=== PATIENT | female | born 1950 | race Caucasian/White ===

== ENCOUNTER 2020-11-07 07:26 | Outpatient (CLI) | payer MEDICARE, SELFPAY ==
--- NOTE | ~2020-11-07 | XR_ITS ---
EXAMINATION: XR hand RT min 3V, XR wrist RT min 3V DATE: 11/07/2020 08:02 INDICATION: Right thumb instability with pain and swelling post fall TECHNIQUE: 1. Posteroanterior, ulnar deviation, oblique, and lateral views of the right wrist were obtained. 2. Dorsal palmar, oblique and lateral views of the right hand were obtained. COMPARISON: None. FINDINGS: Prominent radial angulation along moderate radial subluxation at the first metacarpophalangeal joint suspicious for tear of the ulnar collateral ligament. There is moderate osteoarthritis at the first m etacarpophalangeal joint suggesting this could be chronic. There is widening of the scapholunate inte rval along with dorsal intercalated segment instability (DISI) consistent with scapholunate ligament tear. This is likely chronic given the moderate osteoarthritis at the radioscaphoid articulation of t he wrist and the lunocapitate articulation of the midcarpal joint, both findings of scapholunate adva nced collapse (SLAC) wrist. No acute fracture. Additional mild polyarticular osteoarthritis at the di stal radioulnar, triscaphe, first carpometacarpal, the majority of the interphalangeal joints and a f ew additional metacarpophalangeal joints. There is soft tissue swelling about the first metacarpophal angeal joint. IMPRESSION: 1. Radial angulation and radial subluxation at the first metacarpophalangeal joint suspicious for age indeterminate tear of the ulnar collateral ligament. 2. 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 Reviewed, dictated and finalized at location A. IMPRESSION: 1. Radial angulation and radial subluxation at the first metacarpophalangeal juan int suspicious for age indeterminate tear of the ulnar collateral ligament. 2. 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
--- NOTE | ~2020-11-07 | XR_ITS ---
EXAMINATION: XR wrist LT min 3V DATE: 11/07/2020 08:02 INDICATION: Left wrist pain post fall 2 weeks prior. TECHNIQUE: Posteroanterior, ulnar deviation, oblique, and lateral views of the left wrist were obtain ed. COMPARISON: none FINDINGS: Linear lucency with subtle increased sclerosis along the indistinct margins consistent with early chas nges of healing at a nondisplaced transverse fracture of the distal left radius. The fracture is mild ly comminuted with dorsal impaction and mild buckling along the dorsal cortex. On the oblique project ion there is an additional thin linear lucency suspicious for intra-articular extension of a nondispl aced fracture plane. There is neutral tilt of the distal articular surface. No other fractures identi fied. There is likely chronic tear of the scapholunate ligament with widening of the scapholunate int erval, dorsal intercalated segment instability (DISI) and secondary scapholunate advanced collapse (S LAC) wrist characterized by severe osteoarthritis at the radioscaphoid articulation. Additional mild polyarticular osteoarthritis at multiple joints at the left wrist and visualized hand. Prominent soft tissue swelling about the wrist and carpus. IMPRESSION: 1. Mild dorsal impaction of a likely subacute healing nondisplaced potentially intra-articular fractu re at the distal left radius. 2. 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 Reviewed, dictated and finalized at location A. IMPRESSION: 1. Mild dorsal impaction of a likely subacute healing nondisplaced potentially intra-articular fracture at the distal left radius. 2. Chronic scapholunate ligament tear with secondary dorsal intercalated segmen t instability (DISI) and secondary scapholunate advanced collapse (SLAC) wrist.
== END 2020-11-07 07:27 | disposition home or self-care (01) ==
PROVIDERS: Visit Provider Plastic Surgery
DX: S62.511A Displaced fracture of proximal phalanx of right thumb, initial encounter for closed fracture (principal); S62.002A Unspecified fracture of navicular [scaphoid] bone of left wrist, initial encounter for closed fracture; X58.XXXA Exposure to other specified factors, initial encounter
CPT/HCPCS: 73110; 73130

== ENCOUNTER 2020-12-19 00:53 | Day surgery (SDC) | payer MEDICARE, SELFPAY ==
[2020-12-17 09:25] VITALS: BMI 24.7
[2020-12-19] VITALS (8 sets, daily range): BP systolic 115–160; BP diastolic 51–80; PULSE 70–85; RESP 10–17; TEMP 36.2–36.8; O2SAT 93–98; BMI 24.7
--- NOTE | ~2020-12-19 | XR_ITS ---
EXAMINATION: XR surgery orthopedic EXAM DATE: 12/19/2020 09:09 INDICATION: Right hand 1st finger tendon repair. TECHNIQUE: Several portable intraoperative images obtained. Correlation is made to right hand examin ation was 11/07/2020. FINDINGS: Several images demonstrating subluxation of the right 1st proximal phalanx, and also vidal l position of this phalanx. A surgical pin was inserted in the proximal phalangeal base. Correlate wi th procedure note. IMPRESSION: Fluoroscopy used during right 1st digit tendon repair. Reviewed, dictated and finalized at location B.
[2020-12-19] MEDS: ACETAMINOPHEN 500 MG TABLET 1000 MG PO (06:21)
[2020-12-19] MEDS: LACTATED RINGERS 1,000 ML 30 ML IV CONT ×2 (06:30→09:35)
--- NOTE | 2020-12-19 07:08 | WPDANESEPPF ---
Anes - Initial Pre Proc Eval Procedure: Operation Date: 12/19/20 07:30 Proposed Procedures p Repair Right First Ulnar Collateral Ligament At The Metacarpophalangeal Joint With Arthrex Internal Brace - Brent Mares MD Date/Time: 12/19/20 07:08 Surgeon: Brent Mares MD Pre Op Diagnosis: rupture ulnar collateral ligament rt 1st mp joint Patient Data Age: 70 Gender: F Height: 1.71 m Weight: 72.65 kg Last Vital Signs Temp 98.3 F 12/19/20 06:10 Pulse 70 12/19/20 06:10 Resp 16 12/19/20 06:10 BP 160/63 H 12/19/20 06:10 Pulse Ox 97 12/19/20 06:10 Allergies Allergy/AdvReac Type Severity Reaction Status Date / Time Penicillins Allergy Unknown Unknown - Verified 12/19/20 06:06 A CHILD Contrast Media AdvReac Unknown FACIAL Uncoded 12/17/20 09:24 SWELLING Home Medications Medication Instructions Recorded Confirmed Type pizhkset-fedpbal-eqxp-lutein 1 tablet QAM 12/17/20 12/19/20 History [Centrum Silver Ultra Women's] Patient hx anesthesia problems: none Family hx anesthesia problems: none Results Review: All pre-operative results and documents have been reviewed as part of the pre-operative evaluation. FOR[facility]LY [facility], [facility] Past Medical History Medical History (Updated 12/19/20 @ 07:08 by Benjamin Coley MD) Arthritis H/O bronchitis Social History Social History Smoking status: Former smoker Tobacco type: cigarettes Second hand tobacco smoke exposure: No Additional smoking assessment comments: PT STATES SMOKED 1PK/WEEK/ OFF & ON 50YRS- QUIT 2016 FOR GOOD Alcohol intake: current Drinks per week: 2 Substance use: never Substance use type: does not use Living arrangements: alone Spiritual care concerns: No Anes - Eval Final PreProcedure Day of Procedure 12/19/20 07:08 Patient weight: overweight Heart: regular rate and rhythm Lungs: clear to auscultation Airway: Mallampati scale class II Neurological: alert and oriented Last oral intake: >/= 8 hours ASA classification: II Emergent: no Anesthetic plan: proceed Anesthesia type and monitoring: general LMA and standard monitoring Results Review: All pre-operative results and documents have been reviewed as part of the pre-operative evaluation. Informed Consent: The patient's anesthetic plan and its attendant risks and benefits were discussed with the patient/family/POA. Questions were solicited and answers provided to the satisfaction of the patient/family/POA.
--- NOTE | 2020-12-19 07:21 | WPDHPUPDATE1 ---
History and Physical Update Update Date/Time: 12/19/20 07:21 History and Physical has been reviewed, including an updated exam of the patient. There are NO changes in the patient's condition. Risks, benefits, and alternatives have been discussed and questions answered. Patient agrees to proceed with procedure.
[2020-12-19] MEDS: ceFAZolin 2 GM/D5W 50 ML 2 GM/50 ML BAG IVPB (07:37)
[2020-12-19] MEDS: LIDO 1%/EPINEPHRINE 1:100,000 50 ML VIAL INFILTRATE (08:03)
[2020-12-19] MEDS: BUPIVACAINE HCL 0.5% PF 30 ML VIAL INFILTRATE (09:14)
--- NOTE | 2020-12-19 09:59 | P.OP_ITS ---
Procedure Note - Detailed Date of Procedure 12/19/20 Pre-op Diagnosis rupture ulnar collateral ligament rt 1st mp joint Post-op Diagnosis same Procedure Performed Repair of right 1st metacarpophalangeal joint ulnar collateral ligament with Arthrex internal brace Surgeon Brent Mares MD [employer] Special Agent [place] Anesthesia general Indications 8-week-old rupture with Stener lesion Description of Procedure The site was marked on the patient's hand in the holding area. She was taken to the operating room and placed supine on the operating table. Time-out was held and confirmed. She was given general endotracheal anesthesia. The right upper extremity was prepped and draped in usual fashion. The site was marked for the incision and locally infiltrated with 1% lidocaine with epinephrine. The extremity was exsanguinated and the tourniquet inflated to 250 mmHg. The lazy-S incision was made as marked and the skin flaps elevated both directions. Some organized clot and scarring was identified. We were able to determine the course of the EPL and made our incision in the abductor pollicis aponeurosis to expose the metacarpophalangeal joint. Careful dissection revealed the large Stener lesion. There appeared to be adequate ligament material distally to which we could repair. The joint was examined and fairly significant osteoarthritis of that joint was noted. The fenestration for the Arthrex anchor was drilled and over-drilled after confirming its position by C-arm images. The combination suture tape and FiberWire were inserted at that site retained by the interference lock. The needle was passed onto the FiberWire and this was passed through the distal stump of the ligament and into the proximal stump. We were able to ulnarly abduct the thumb and tighten that repair over the proximal ligament stump. The 2nd fenestration was made just proximal to the origin of the ulnar collateral ligament. This was overdrilled and the suture tape was pulled over the ulnar collateral ligament and fixed to that site with the 2nd anchor lock. Stability was obtained. Easy passive range of motion of about 30? was confirmed. Ulnar deviation was quite limited. The ligament was sutured to the volar plate in a single site with 4-0 Vicryl suture. The aponeurosis was repaired with 4-0 Vicryl. The skin was closed with running 5 0 nylon. A branch of the cutaneous nerve traversing our area had been visualized and retained out of the way throughout the procedure and was visualized upon closure. A bulky bandage with thumb spica splint was applied. The tourniquet was released at the time of the wound closure. The site was locally infiltrated with 0.5% Marcaine 8 milliliter Implants Arthrex internal brace Estimated Blood Loss 5 Drains No Packing No Pathology none sent Complications No immediate complications Condition stable Disposition PACU
[2020-12-19] MEDS: ONDANSETRON INJ 4 MG/2 ML VIAL IV PUSH (10:08)
[2020-12-19] MEDS: diphenhydrAMINE HCl INJ 50 MG/ML VIAL 12.5 MG IV PUSH (10:22)
== END 2020-12-19 11:20 | disposition home or self-care (01) ==
PROVIDERS: Visit Provider Plastic Surgery
PROC: (CPT 26540; principal; 2020-12-19 07:30)
DX: S63.311A Traumatic rupture of collateral ligament of right wrist, initial encounter (principal); Z87.891 Personal history of nicotine dependence; Z91.041 Radiographic dye allergy status; Z88.0 Allergy status to penicillin; X58.XXXA Exposure to other specified factors, initial encounter; Y93.89 Activity, other specified; Y92.9 Unspecified place or not applicable; Y99.9 Unspecified external cause status
CPT/HCPCS: 26540; A9270; C1713; J0690; J1100; J1200; J2250; J2405; J2704; J3010; J7120

== ENCOUNTER 2021-08-23 20:32 | Emergency (ER) | payer MEDICARE, SELFPAY ==
--- NOTE | ~2021-08-23 | XR_ITS ---
EXAMINATION: XR chest 1V portable Exam Date/Time: 08/23/2021 21:00 CDT HISTORY: cough, HX bronchitis, cp after coughing Comparison: CT abdomen and pelvis 03/30/2018. RESULT: Lines, tubes, and devices: None. Lungs and pleura: Subtle peripheral reticulonodular opacities, overlying mild senescent and chronic interstitial change. Cardiomediastinal silhouette: Stable cardiomediastinal silhouette. Other: No acute osseous or upper abdominal finding. IMPRESSION: Pulmonary opacities may represent bronchiolitis, as can be seen with atypical infection, asthma, aspi ration, and small airways disease. Mild chronic senescent and interstitial change. Reviewed, dictated and finalized at location K. IMPRESSION: Pulmonary opacities may represent bronchiolitis, as can be seen with atypical i nfection, asthma, aspiration, and small airways disease. Mild chronic senescent and interstitial change.
[2021-08-23 20:34] VITALS: BP 109/67; PULSE 115; RESP 20; TEMP 36.3; O2SAT 93
--- NOTE | 2021-08-23 20:34 | ECG_ITS ---
Measurements Intervals [place] Rate: 105 P: 63 NV: 128 QRS: 11 QRSD: 89 T: 62 QT: 313 QTc: 414 Interpretive Statements SINUS TACHYCARDIA BORDERLINE ECG Electronically Signed On 08-24-2021 6:19:46 CDT by Zana Rubio D.O.
--- NOTE | 2021-08-23 20:55 | ED.GENADULT ---
HPI - General Adult General Chief complaint: Upper Respiratory Infection Stated complaint: Cough, bronchitis Time Seen by Provider: 08/23/21 20:38 History of Present Illness HPI narrative: 71-year-old female presenting to the emergency department for evaluation of worsening cough and shortness of breath over the last 3 days. Patient reports she is vaccinated against COVID but has not yet had COVID. Patient denies any COVID exposure. Patient states over the last few days she has had increased cough. Patient describes the cough as nonproductive. Patient also does describe some associated fatigue. Patient does have a remote smoking history but denies any diagnosis of COPD and does not use oxygen at home. Related Data Home Medications Medication Instructions Recorded Confirmed qdculzuf-cpxwutw-bjwv-lutein tablet 1 tablet QAM 12/17/20 12/19/20 meloxicam 15 mg tablet tablet 08/23/21 Allergies Allergy/AdvReac Type Severity Reaction Status Date / Time Penicillins Allergy Unknown Unknown - Verified 08/23/21 21:18 A CHILD Contrast Media AdvReac Unknown FACIAL Uncoded 08/23/21 21:18 SWELLING Review of Systems Review of Systems: CONSTITUTIONAL: Denies fever, chills, or sweats. EYES: Denies visual changes, redness, or discharge. ENT: Denies rhinorrhea, congestion, sore throat, or otalgia. CARDIOVASCULAR: Denies chest pain, palpitations, or edema. RESPIRATORY: See HPI GASTROINTESTINAL: Denies abdominal pain, nausea, vomiting, or diarrhea. GENITOURINARY: Denies dysuria or hematuria. SKIN: Denies rash or itching. MUSCULOSKELETAL: Denies back pain, joint pain, or myalgia. NEUROLOGIC: Denies headache, numbness, or weakness. [facility] Past Medical History Medical History (Updated 08/23/21 @ 23:08 by Traun Callahan MD) Arthritis H/O bronchitis Social History Social History Smoking status: Former smoker Tobacco type: cigarettes Second hand tobacco smoke exposure: No Additional smoking assessment comments: PT STATES SMOKED 1PK/WEEK/ OFF & ON 50YRS- QUIT 2016 FOR GOOD Alcohol intake: current Drinks per week: 2 Substance use: never Substance use type: does not use Spiritual care concerns: No Exam Narrative: APPEARANCE: Well appearing, no pain, no distress, well-nourished. HEAD: normocephalic, atraumatic. EYES: PERRLA/EOMI, conjunctivae clear. NOSE: Normal no drainage THROAT: Pharynx clear, no exudate. NECK: Supple. No adenopathy, no masses. RESPIRATORY: Airway patent, respirations nonlabored. Increased work of breathing, cough, some rhonchi CARDIOVASCULAR: Regular rate and rhythm without murmurs rubs or gallops. ABDOMINAL: Soft, nontender, nondistended, normal bowel sounds MUSCULOSKELETAL: Moves all extremities. Strength/ROM intact, No edema, No calf tenderness. NEURO: Alert. Cranial nerves II through XII intact. Grossly intact SKIN: Warm, dry. Normal Color Course Course Emergency Course: Patient did feel improved with treatment. Patient's pulse ox was stable during ambulation. Patient did have an elevated D-dimer but was within normal limits when age-adjusted. Patient was treated with a Z-Johan and a breathing treatment. Patient reports she felt improved. Patient was discharged home with the completion of the Z-Johan and an albuterol inhaler for home. All questions and concerns were addressed. Patient was stable at time of discharge from the emergency department. Vital Signs Vital signs: Vital Signs Temperature 97.4 F L 08/23/21 20:34 Pulse Rate 115 H 08/23/21 20:34 Respiratory Rate 20 08/23/21 20:34 Blood Pressure 109/67 08/23/21 20:34 Pulse Oximetry 93 08/23/21 20:34 Oxygen Delivery Room Air 08/23/21 20:34 Temperature 97.4 F L 08/23/21 20:34 Pulse Rate 105 H 08/24/21 01:18 Respiratory Rate 20 08/24/21 01:18 Blood Pressure 101/82 08/24/21 01:18 Pulse Oximetry 92 08/24/21 01:18 Oxygen Delivery Room Air 08/24/21 00:00 [facility]
[2021-08-23 21:06] LABS: Basophils Absolute Auto 0.1 K/mm3 (0.0-0.1); Basophils Percent Auto 0.6 % (0.2-1.2); Eosinophils Percent Auto 5.8 % (0-4.4); Hematocrit 47.7 % (37.0-47.0); Hemoglobin 15.6 g/dL (12.0-15.0); Immature Granulocyte Absolute 0.06 K/mm3 (0.00-0.031); Immature Granulocyte Percent A 0.4 % (0-0.5); Lymphocytes Absolute Auto 3.04 K/mm3 (0.9-3.2); Mean Corpuscular HGB Conc 32.7 g/dl (32-36); Mean Corpuscular Hemoglobin 30.6 pg (26-34); Mean Corpuscular Volume 93.5 fl (80-100); Mean Platelet Volume 9.9 fl (7.4-10.4); Monocytes Absolute Auto 0.6 K/mm3 (0.1-0.6); Monocytes Percent Auto 3.7 % (2.6-8.5); Neutrophils Absolute Auto 12.1 K/mm3 (1.3-6.7); Neutrophils Percent Auto 71.5 % (45.5-73.1); Platelet Count Result 221 k/mm3 (150-375); Red Cell Distribution Width 13.6 % (11.5-14.5); White Blood Count 16.9 K/mm3 (4.5-10.0)
[2021-08-23 21:16] LABS: Alanine Aminotransferase 17 U/L (6-35); Albumin Level 4.5 g/dL (3.5-5.1); Alkaline Phosphatase 68 U/L (38-126); Anion Gap 7 mmol/L (8-16); Aspartate Amino Transferase 24 U/L (14-36); Bilirubin,Total 0.5 mg/dL (0.2-1.3); Blood Urea Nitrogen 23 mg/dL (7-17); Calcium 8.9 mg/dL (8.4-10.2); Carbon Dioxide 25 mmol/L (22-30); Chloride 108 mmol/L (98-107); Estimated Glomerular Filt Rate > 60; Glucose 116 mg/dL (65-110); Potassium 3.9 mmol/L (3.4-5.0); Sodium 140 mmol/L (137-145)
[2021-08-23 21:17] VITALS: O2SAT 92
[2021-08-23] MEDS: ALBUTEROL SULFATE NEB 2.5 MG/3 ML INH 5 MG INHALATION (21:20)
[2021-08-23 21:22] VITALS: PULSE 111; RESP 17
[2021-08-23 21:35] VITALS: PULSE 111; RESP 17
[2021-08-23 21:43] LABS: SARS-CoV-2 RNA PCR Negative
[2021-08-23 23:05] VITALS: BP 123/62; PULSE 109; RESP 19; O2SAT 91
[2021-08-23 23:25] LABS: D Dimer 0.49 ug/mL (<0.48)
[2021-08-24] VITALS: O2SAT 92
[2021-08-24 01:18] VITALS: BP 101/82; PULSE 105; RESP 20; O2SAT 92
== END 2021-08-24 01:08 | disposition home or self-care (01) ==
PROVIDERS: Emergency Medicine; Emergency Provider Emergency Medicine; PCP Internal Medicine
DX: J06.9 Acute upper respiratory infection, unspecified (principal); Z87.891 Personal history of nicotine dependence; Z20.822 Contact with and (suspected) exposure to COVID-19
CPT/HCPCS: 36415; 71045; 80053; 85025; 85380; 93005; 94640; 96365; 99284; C9803; J0456; U0003; U0005

== ENCOUNTER 2024-09-04 11:37 | Outpatient (CLI) | payer MEDICARE, SELFPAY ==
--- OUTSIDE RECORDS SUMMARY | 2024-09-04 11:42 | XMS_ITS | Continuity of Care Document ---
Author Organization [facility] Address [address] [facility] [address] [place] [address] Phone Care Team Providers Care Foot Orthopedist Name Role Phone Jose Luis Craft Unavailable Unavailable Procedures Procedure Date Eye Exam & Treatment Refraction Advance Directives Directive Yes / No Effective Date File Name No Information Encounters Encounter Description Practice Location Reason(s) For Visit Diagnoses Date Provider Providers Copied on Encounter [facility], [address], [place], [place], [id number], [place] tel:[phone] [facility] No Information [address] [employer] [facility] [address], [place], [address], [place]. tel:[phone] Family History Family Member Type Diagnosis Age At Onset No Information Payers Payer name Insurance type Covered democrat ID Authoriza tion(s) No Information Social History Type Description Quantity Date Captured Comments Sex Female Smoking Status No Information Chief Complaint And Reason For Visit No Information Reason For Referral Reason For Referral No Information History Of Present Illness Encounter Date Complaint History Of Prese nt Illness No Information Functional Status Date Functional Assessmen t No Information Instructions Date Instruction Additional Infor mation No Information Assessments Type Assessment Date No Information Patient Care Teams Name Effective Dates (start - stop) Status Members No Information
[2024-09-04 12:47] LABS: Hematocrit 44.6 % (37.0-47.0); Hemoglobin 13.8 g/dL (12.0-15.0); Mean Corpuscular HGB Conc 30.9 g/dl (32-36); Mean Corpuscular Hemoglobin 29.2 pg (26-34); Mean Corpuscular Volume 94.3 fl (80-100); Platelet Count Result 245 k/mm3 (150-375); Red Blood Count 4.73 M/mm3 (4.2-5.4); White Blood Count 10.0 K/mm3 (4.5-10.0)
[2024-09-04 12:58] LABS: Alanine Aminotransferase 14 U/L (6-35); Albumin Level 4.3 g/dL (3.5-5.1); Alkaline Phosphatase 84 U/L (38-126); Anion Gap 7 mmol/L (4-12); Aspartate Amino Transferase 24 U/L (14-36); Bilirubin,Total 0.7 mg/dL (0.2-1.3); Blood Urea Nitrogen 20 mg/dL (7-17); Calcium 9.5 mg/dL (8.4-10.2); Carbon Dioxide 29 mmol/L (22-30); Chloride 104 mmol/L (98-107); Cholesterol 174 mg/dL (0-200); Estimated Glomerular Filt Rate > 60; Glucose 95 mg/dL (65-110); HDL Direct 61 mg/dL; Potassium 4.3 mmol/L (3.4-5.0); Sodium 140 mmol/L (137-145); Total Protein 7.4 g/dL (6.3-8.2); Triglycerides 90 mg/dL (<150)
[2024-09-04 13:25] LABS: Hemoglobin A1C 5.3 % (<5.7)
[2024-09-04 13:34] LABS: Thyroid Stimulating Hormone 0.490 uIU/mL (0.465-4.680)
[2024-09-04 13:53] LABS: Vitamin B12 532.0 pg/mL (239-931)
== END 2024-09-04 11:38 | disposition home or self-care (01) ==
PROVIDERS: PCP Internal Medicine; Visit Provider Nurse Practitioner Family
DX: E78.5 Hyperlipidemia, unspecified (principal); Z11.59 Encounter for screening for other viral diseases; E03.9 Hypothyroidism, unspecified; E53.8 Deficiency of other specified B group vitamins; E55.9 Vitamin D deficiency, unspecified; R73.03 Prediabetes
CPT/HCPCS: 36415; 80053; 80061; 82607; 83036; 84443; 85027; 86803